=== PATIENT | male | born 1950 | race Caucasian/White ===

== ENCOUNTER → 2017-01-23 | Outpatient (CLI) | payer MEDICARE ==
--- NOTE | 2017-01-23 11:34 | US ---
EXAMINATION TYPE: US kidneys/renal and bladder DATE OF EXAM: 01/23/2017 11:11 AM COMPARISON: US 10/19/2016, 05/10/2016 CLINICAL HISTORY: R Renal Cyst D41.01. F/U previous renal EXAM MEASUREMENTS: Right Kidney: 10.8 x 5.3 x 5.1 cm Left Kidney: 11.6 x 6.2 x 6.1 cm FINDINGS: Right Kidney: Cyst upper pole as seen on previous= 1.7 x 1.1 x 1.5 cm Left Kidney: wnl Bladder: wnl Bilateral Jets seen: Yes Incidental finding as seen on previous, enlarged spleen= 16.0 cm There is no evidence for hydronephrosis at this point in time. No nephrolithiasis is seen. No khoa s are identified. The urinary bladder is anechoic. Bilateral ureteral jets are seen. IMPRESSION: Simple appearing right upper pole renal cyst Incidental note made of mild splenomegaly
== END | disposition home or self-care (01) ==
LOC: RADUSWWP 10:47
PROVIDERS: ATTEND Urology
DX: N28.1 Cyst of kidney, acquired (principal)
CPT/HCPCS: 76770

== ENCOUNTER 2017-03-21 06:38 | Day surgery (SDC) | payer MEDICARE ==
[~2017-03-21 06:38] MED LIST: DEXAMETHASONE SOD PHOSPHATE 10 MG/ML 1 ML VIAL IV ONE; HYDROmorphone 1 MG/ML 1 ML SYRINGE IVP PRN; LACTATED RINGERS 1,000 ML IV SCH; LIDOCAINE 1% 20 ML VIAL (10MG/ML) FOR IV START INTRADERMA PRN; MIDAZOLAM 2 MG/2 ML VIAL IV PRN; ONDANSETRON 4 MG/2 ML VIAL IVP ONE; Pre Op ABX Message 1 EACH MISC MISCELLANE ONE; SCOPOLAMINE 1.5MG/72HR PATCH TRANSDERM ONE
[2017-03-21 07:22] LABS: Basophils % (A) 1 %; CH 31.1; CHCM 35.7; Eosinophils # (A) 0.1 k/uL (0-0.7); Eosinophils % (A) 3 %; HCT 45.8 % (39.0-53.0); HDW 3.18; HGB 16.1 gm/dL (13.0-17.5); Luc # (Auto) 0.11; Luc % (Auto) 2; Lymphocytes # (A) 1.5 k/uL (1.0-4.8); Lymphocytes % (A) 30 %; MCH 30.6 pg (25.0-35.0); MCV 87.4 fL (80.0-100.0); Mean Platelet Volume 7.4; Monocytes # (A) 0.3 k/uL (0-1.0); Monocytes % (A) 6 %; Neutrophils # (A) 2.9 k/uL (1.3-7.7); Neutrophils % (A) 58 %; RBC 5.24 m/uL (4.30-5.90); RDW 14.8 % (11.5-15.5); WBC 4.9 k/uL (3.8-10.6); WBC (Perox) 4.97
[2017-03-21 07:33] LABS: Potassium 3.8 mmol/L (3.5-5.1)
[2017-03-21] MEDS ORDERED: SUCCINYLCHOLINE CHLORIDE 100 MG/5 ML SYR IV ONE (07:37)
[2017-03-21] MEDS ORDERED: ePHEDrine 50 MG/ML 1 ML AMP ONE (07:37)
[2017-03-21] MEDS ORDERED: LIDOCAINE 1% INJ 10MG/ML (20 ML MDV) ONE (07:37)
[2017-03-21] MEDS ORDERED: fentaNYL (PF) 50 MCG/ML 2 ML AMP ONE (07:37)
[2017-03-21] MEDS ORDERED: MIDAZOLAM 2 MG/2 ML VIAL ONE (07:37)
[2017-03-21] MEDS ORDERED: KETAMINE 10 MG/ML 20 ML VIAL ONE (07:37)
[2017-03-21] MEDS ORDERED: GLYCOPYRROLATE 0.2 MG/ML 2 ML VIAL ONE (07:37)
[2017-03-21] MEDS ORDERED: PROPOFOL 10 MG/ML 20 ML VIAL IV ONE (07:37)
[2017-03-21] MEDS ORDERED: SODIUM CHLORIDE 0.9% IV ONE ×2 (07:45)
[2017-03-21] MEDS ORDERED: CLINDAMYCIN IV ONE ×2 (07:45)
[2017-03-21] MEDS ORDERED: CLINDAMYCIN 600 MG in SODIUM CHLORIDE 0.9% 1,000 ML IRRIGATION ONE (08:23)
[2017-03-21] MEDS ORDERED: LACTATED RINGERS 1,000 ML IV ONE (08:33)
[2017-03-21] MEDS ORDERED: ONDANSETRON 4 MG/2 ML VIAL IVP PRN (09:34)
[2017-03-21] MEDS ORDERED: HYDROmorphone 1 MG/ML 1 ML SYRINGE IVP PRN ×2 (09:34)
[2017-03-21] MEDS ORDERED: SENNOSIDES-DOCUSATE SODIUM 1 EACH TAB PO PRN (09:34)
[2017-03-21] MEDS ORDERED: TEMAZEPAM 15 MG CAP PO PRN (09:34)
[2017-03-21] MEDS ORDERED: HYDROcodone/APAP 10-325MG 1 EACH TAB PO PRN (09:38)
[2017-03-21] MEDS: HYDROcodone/APAP 10-325MG 1 EACH TAB PO PRN ×3 (11:23→23:27)
[2017-03-21] MEDS: LACTATED RINGERS 1,000 ML IV SCH ×2 (11:27→20:01)
[2017-03-21] MEDS ORDERED: FUROSEMIDE 20 MG TAB PO PRN (12:28)
--- NOTE | 2017-03-21 12:36 | P.CONS ---
History of Present Illness - History of Present Illness 67-year-old male post repair of quadriceps tendon left knee home medications reordered Review of Systems Musculoskeletal: left: knee pain Past Medical History Past Medical History: Hypertension, Osteoarthritis (OA), Sleep Apnea/CPAP/BIPAP Additional Past Medical History / Comment(s): CHRONIC BACK PAIN, C-PAP MACHINE. , CYST ON KIDNEY., VARICOSE VEINS., STATES REPEAT RUPTURE OF QUADRICEPS TENDON DURING BACK SURGERY., USING CANE. History of Any Multi-Drug Resistant Organisms: None Reported Past Surgical History: Back Surgery, Joint Replacement Additional Past Surgical History / Comment(s): RIGHT KNEE REPLACEMENT., BILATERAL FOOT SURGERIES., VEIN STRIPPING., RIGHT SHOULDER, LEFT KNEE . Past Anesthesia/Blood Transfusion Reactions: No Reported Reaction Past Psychological History: Depression Additional Psychological History / Comment(s): QUIT SMOKING IN THE . SMOKED FOR APPROX 15 YEARS. SMOKED LESS THAN 1/2 PPD. Smoking Status: Former smoker Past Alcohol Use History: None Reported Past Drug Use History: None Reported - Past Family History Father Family Medical History: Cancer Additional Family Medical History / Comment(s): PROSTATE CANCER Medications and Allergies Home Medications Medication Instructions Recorded Confirmed Type ALPRAZolam [ALPRAZolam] 1 mg PO HS PRN 10/02/15 03/21/17 History Atenolol [Atenolol] 100 mg PO QAM 10/02/15 03/21/17 History Escitalopram [Lexapro] 20 mg PO QAM 10/02/15 03/21/17 History Hydrocodone/Acetaminophen 1 tab PO Q4-6H PRN 10/02/15 03/21/17 History [Hydrocodon-Acetaminophn 10-325] Furosemide [Furosemide] 20 mg PO BID PRN 09/14/16 03/21/17 History Gabapentin [Gabapentin] 400 mg PO HS 09/14/16 03/21/17 History Allopurinol [Zyloprim] 200 mg PO DAILY 03/17/17 03/21/17 History Cholecalciferol [Vitamin D3] 1,000 unit PO DAILY 03/17/17 03/21/17 History Naproxen 500 mg PO DAILY PRN 03/17/17 03/21/17 History Vitamin B Complex 1 each PO DAILY 03/17/17 03/21/17 History Allergies Allergy/AdvReac Type Severity Reaction Status Date / Time cephalexin monohydrate Allergy GI BLEEDING Verified 03/21/17 11:16 [From Keflex] Penicillins Allergy Dyspnea Verified 03/21/17 11:16 Physical Exam Vitals: Vital Signs Temp Pulse Resp BP Pulse Ox 03/21/17 10:34 60 16 155/78 96 03/21/17 10:19 59 L 16 152/80 96 03/21/17 10:04 61 16 153/89 95 03/21/17 09:49 65 16 163/67 95 03/21/17 09:34 97.3 F L 69 12 174/86 92 L 03/21/17 06:52 98.0 F 53 L 18 174/86 94 L Intake and Output 03/20/17 03/21/17 03/21/17 22:59 06:59 14:59 Intake Total 1302 Output Total 310 Balance 992 Intake: IV 1302 Output: Urine 300 Estimated Blood Loss 10 - Constitutional General appearance: mild distress, obese - EENT Eyes: PERRLA Ears: bilateral: normal - Neck Neck: normal ROM - Respiratory Respiratory: bilateral: CTA - Cardiovascular Rhythm: regular - Gastrointestinal General gastrointestinal: soft - Integumentary Integumentary: normal - Neurologic Neurologic: CNII-XII intact - Musculoskeletal Left knee immobilizer - Psychiatric Psychiatric: appropriate affect, intact judgment & insight Results CBC & Chem 7: 03/21/17 07:10 03/21/17 07:10 Assessment and Plan Plan: Assessment Post repair of quadriceps tendon left knee History of hypertension Osteoarthritis with chronic back pain Sleep apnea uses CPAP Anxiety disorder Plan Reordered home medication we'll monitor for changes in condition
[2017-03-21 12:37] VITALS: BMI 34.0
[2017-03-21] MEDS: ATENOLOL 50 MG TAB PO SCH (13:55)
[2017-03-21] MEDS: ESCITALOPRAM 20 MG TAB PO SCH (13:55)
[2017-03-21] MEDS: ALLOPURINOL 100 MG TAB PO SCH (13:56)
[2017-03-21] MEDS: HYDROmorphone 1 MG/ML 1 ML SYRINGE IVP PRN (14:04)
[2017-03-21] MEDS: CLINDAMYCIN 900 MG in DEXTROSE 5% IN WATER 50 ML IVPB SCH ×4 (17:58→23:45)
[2017-03-21] MEDS: hydrOXYzine PAMOATE 25 MG CAP PO PRN (17:59)
[2017-03-21] MEDS: GABAPENTIN 400 MG CAP PO SCH (20:01)
[2017-03-21] MEDS: ALPRAZolam 0.5 MG TAB PO PRN (23:28)
[2017-03-22] MEDS: LACTATED RINGERS 1,000 ML IV SCH ×3 (04:15→20:27)
[2017-03-22] MEDS: HYDROcodone/APAP 10-325MG 1 EACH TAB PO PRN ×3 (06:54→19:39)
[2017-03-22] MEDS: hydrOXYzine PAMOATE 25 MG CAP PO PRN ×2 (06:55→19:39)
[2017-03-22] MEDS: ALLOPURINOL 100 MG TAB PO SCH (07:55)
[2017-03-22] MEDS: ATENOLOL 50 MG TAB PO SCH (07:55)
[2017-03-22] MEDS: ESCITALOPRAM 20 MG TAB PO SCH (07:56)
--- NOTE | 2017-03-22 08:37 | P.PN ---
Subjective Principal diagnosis: Status post left quadriceps tendon repair This is a 67 year-old male post left quadriceps tendon repair. This is post-op day 1. The patient was evaluated at the bedside today. The patient denies nausea, vomiting, abdominal pain, shortness of breath, and chest pain this morning. He states his pain is controlled at this time. The patient has not been up with physical therapy yet. Objective - Vital Signs Vital signs: Vital Signs Temp 98 F 03/22/17 07:00 Pulse 56 L 03/22/17 07:00 Resp 16 03/22/17 07:00 BP 153/70 03/22/17 07:00 Pulse Ox 93 L 03/22/17 07:00 Intake & Output 03/21/17 03/22/17 03/22/17 18:59 06:59 18:59 Intake Total 2302 450 180 Output Total 1610 1500 4100 Balance 692 -1050 -3920 Weight 127.006 kg Intake: IV 1302 450 Clindamycin 900 mg In 50 Dextrose 5% in Water 50 ml @ 100 mls/hr IVPB Q8HR TATO Rx#:[id number] Lactated Ringers 1,000 ml 400 @ 100 mls/hr IV .Q10H TATO Rx#:[id number] Oral 1000 180 Output: Urine 1600 1500 4100 Uretheral (Briceño) 1500 2800 Estimated Blood Loss 10 Other: Voiding Method Indwelling Catheter Indwelling Catheter Indwelling Catheter - Exam The patient does not appear in acute distress. Alert and orientated x3. Dressing is clean dry and intact. Calf is soft and nontender. Good foot and ankle motion without difficulty. Sensation and circulatory status is intact. - Labs CBC & Chem 7: 03/21/17 07:10 03/21/17 07:10 Assessment and Plan (1) Traumatic rupture of left quadriceps tendon Status: Acute (2) Status post tendon repair Status: Acute Plan: 1. Continue pain control 2. Non-weightbearing to the left leg 3. Start physical therapy and ambulation 4. Anticipate discharge home tomorrow
[2017-03-22] MEDS: HYDROmorphone 1 MG/ML 1 ML SYRINGE IVP PRN (10:00)
--- NOTE | 2017-03-22 10:54 | P.PN ---
Subjective Patient sitting in chair by bedside. States pain uncontrolled. His started physical therapy. Anticipate discharge home tomorrow Objective - Vital Signs Vital signs: Vital Signs Temp 98 F 03/22/17 07:00 Pulse 56 L 03/22/17 07:00 Resp 16 03/22/17 07:00 BP 153/70 03/22/17 07:00 Pulse Ox 93 L 03/22/17 07:00 Intake & Output 03/21/17 03/22/17 03/22/17 18:59 06:59 18:59 Intake Total 2302 450 180 Output Total 1610 1500 4100 Balance 692 -1050 -3920 Weight 127.006 kg Intake: IV 1302 450 Clindamycin 900 mg In 50 Dextrose 5% in Water 50 ml @ 100 mls/hr IVPB Q8HR TATO Rx#:[id number] Lactated Ringers 1,000 ml 400 @ 100 mls/hr IV .Q10H TTAO Rx#:[id number] Oral 1000 180 Output: Urine 1600 1500 4100 Uretheral (Briceño) 1500 2800 Estimated Blood Loss 10 Other: Voiding Method Indwelling Catheter Indwelling Catheter Indwelling Catheter - Constitutional General appearance: Present: mild distress, obese - EENT Eyes: Present: PERRLA Ears: bilateral: normal - Neck Neck: Present: normal ROM - Respiratory Respiratory: bilateral: CTA - Cardiovascular Rhythm: regular - Gastrointestinal General gastrointestinal: Present: soft - Integumentary Integumentary: Present: normal - Neurologic Neurologic: Present: CNII-XII intact - Psychiatric Psychiatric: Present: A&O x's 3, appropriate affect, intact judgment & insight - Labs CBC & Chem 7: 03/21/17 07:10 03/21/17 07:10 Assessment and Plan Plan: Assessment Repair of quadriceps tendon left knee Hypertension Osteoarthritis chronic back pain Sleep apnea uses CPAP Anxiety disorder Plan Patient stable medically for discharge
[2017-03-22] MEDS ORDERED: B COMPLEX-VIT C-VIT E-ZINC 1 EACH TAB PO SCH (12:00)
[2017-03-22] MEDS ORDERED: CHOLECALCIFEROL 1,000 UNIT TAB PO SCH (12:00)
--- NOTE | 2017-03-22 19:44 | OP ---
DATE OF SERVICE: 03/21/2017 SURGEON: LEONEL MORGAN DO PROCEDURES TECH: Chiquita STORM PREOPERATIVE DIAGNOSIS: Ruptured quadriceps tendon, left knee. POSTOPERATIVE DIAGNOSIS: Ruptured quadriceps tendon, left knee OPERATION: Repair of secondary quadriceps rupture of left knee with a quadriceps slide procedure. ANESTHESIA: ESTIMATED BLOOD LOSS: SPECIMENS REMOVED: COMPLICATIONS: OPERATIVE FINDINGS: DESCRIPTION OF PROCEDURE: Patient was taken to the operative suite and placed in supine position. General inhalation anesthesia was performed by the department of anesthesiology. A Betadine prep was carried out over the left knee from mid thigh to mid calf. Sterile drapes were applied in the usual manner. Pneumatic tourniquet was applied 350 mmHg. . A longitudinal incision was developed over previous incision. Blunt dissection through subcutaneous tissue was performed. Multiple retaining sutures were removed at this time. The superior patella was prepared. An incision was developed over the medial and lateral boarder of the central tendon rupture. Drill holes were made into the superior pole of the patella. Towel clamps were used in approximating the tendon. #5 Ethibond suture was utilized in a securing tendon. The tendon was repaired with #2 Ethibond suture un running fashion. Area was irrigated. Antibiotic solution was placed deep in the joint at this time. Further repair was carried out the medial and lateral portions of the quadriceps. Deep fascia was approximated with #3 Ethibond suture and Vicryl suture in running fashion. Subcutaneous tissue was approximated with 2-0 Vicryl suture. Skin was approximated with skin clips. Betadine, Adaptic and sterile pressure dressings were applied. The patient was placed in an immobilizer. Pneumatic tourniquet was deflated. Patient transferred to the recovery room in satisfactory postoperative condition. GROSS PATHOLOGY: There was evidence of a chronic tear of the quadriceps tendon following previous repair of tendon. [facility]
[2017-03-22] MEDS: GABAPENTIN 400 MG CAP PO SCH (20:24)
[2017-03-22] MEDS: ALPRAZolam 0.5 MG TAB PO PRN (23:49)
[2017-03-23 02:12] VITALS: RESP 16
[2017-03-23] MEDS: HYDROcodone/APAP 10-325MG 1 EACH TAB PO PRN ×2 (06:55→11:30)
[2017-03-23 07:38] VITALS: BP 142/81; PULSE 58; TEMP 99.8
[2017-03-23] MEDS: ALLOPURINOL 100 MG TAB PO SCH (07:57)
[2017-03-23] MEDS: ATENOLOL 50 MG TAB PO SCH (07:58)
[2017-03-23] MEDS: LACTATED RINGERS 1,000 ML IV SCH (07:58)
[2017-03-23] MEDS: ESCITALOPRAM 20 MG TAB PO SCH (07:58)
--- NOTE | 2017-03-23 08:24 | P.DS ---
Providers Expected date of discharge: 03/23/17 Attending physician: Matt Yoder Consults: 03/21/17 09:34 Consult Physician Routine Consulting Provider: Fernando Yuen Consult Reason/Comments: medical management Do you want consulting provider notified?: Yes Primary care physician: Fernando Yuen - Discharge Diagnosis(es) (1) Traumatic rupture of left quadriceps tendon Current Visit: Yes Status: Acute (2) Status post tendon repair Current Visit: No Status: Acute Hospital Course: This is a pleasant 67-year-old male last seen in our office with complaints of left knee pain. Patient has known history of a previous quadriceps tendon rupture and found to have a re-rupture of the quad tendon. After discussion and consideration, the patient elected to proceed with a secondary left quadriceps tendon repair. Patient was seen preoperatively, and medically cleared for surgery by his primary care physician. Patient was admitted to [facility] underwent left secondary quadriceps tendon repair on 03/21/[address] Yoder. The procedure was performed without complications or sequelae. The patient is seen and evaluated at bedside today. Pain is well-controlled. Patient has no new complaints today and denies any fevers, chills, nausea, vomiting, or shortness of breath. Vital signs are stable. Dressing is clean dry and intact. Incision looks fine with no erythema or active drainage. Calf is soft and nontender. Patient has full foot and ankle motion without difficulty. Patient's left lower extremity is neurovascularly intact. The patient is orthopedically stable for discharge home today. Pertinent Studies: Laboratory Tests 03/21/17 07:10 WBC 4.9 RBC 5.24 Hgb 16.1 Hct 45.8 Patient Condition at Discharge: Stable Plan - Discharge Summary New Discharge Prescriptions: Aspirin 325 mg PO BID #60 tab HYDROcodone/APAP 10-325MG [[place] 10-325] 1 - 2 tab PO Q4-6H PRN #90 tab PRN Reason: Pain Sennosides-Docusate Sodium [Senokot-S] 2 tab PO DAILY #30 tablet Discharge Medication List ALPRAZolam [ALPRAZolam] 1 mg PO HS PRN 10/02/15 [History] Atenolol [Atenolol] 100 mg PO QAM 10/02/15 [History] Escitalopram [Lexapro] 20 mg PO QAM 10/02/15 [History] Hydrocodone/Acetaminophen [Hydrocodon-Acetaminophn 10-325] 1 tab PO Q4-6H PRN [History] Furosemide [Furosemide] 20 mg PO BID PRN 09/14/16 [History] Gabapentin [Gabapentin] 400 mg PO HS 09/14/16 [History] Allopurinol [Zyloprim] 200 mg PO DAILY 03/17/17 [History] Cholecalciferol [Vitamin D3] 1,000 unit PO DAILY 03/17/17 [History] Naproxen 500 mg PO DAILY PRN 03/17/17 [History] Vitamin B Complex 1 each PO DAILY 03/17/17 [History] Aspirin 325 mg PO BID #60 tab 03/22/17 [Rx] HYDROcodone/APAP 10-325MG [[place] 10-325] 1 - 2 tab PO Q4-6H PRN #90 tab [Rx] Sennosides-Docusate Sodium [Senokot-S] 2 tab PO DAILY #30 tablet 03/22/17 [Rx] Follow up Appointment(s)/Referral(s): Matt Yoder DO [Doctor of Osteopathic Medicine] - 1 Week () Activity/Diet/Wound Care/Special Instructions: Change dressing daily and as needed. Non-weightbearing to the left leg Keep knee immobilizer in place with knee hyperextended. Hernandez to be removed at follow up visit Follow up with Dr. Yoder in 7 days. Call [facility] with any questions or concerns, . Discharge Disposition: HOME SELF-CARE
== END 2017-03-23 12:30 | disposition home or self-care (01) ==
LOC: OR 06:38 → 3SUR 09:34 → OR 03-23 12:30
PROVIDERS: ATTEND Orthopaedic Surgery
DX: S76.112A Strain of left quadriceps muscle, fascia and tendon, initial encounter (principal); X58.XXXA Exposure to other specified factors, initial encounter; M21.372 Foot drop, left foot; I10 Essential (primary) hypertension; G47.30 Sleep apnea, unspecified; F32.9 Major depressive disorder, single episode, unspecified; M19.90 Unspecified osteoarthritis, unspecified site; H91.90 Unspecified hearing loss, unspecified ear; M54.9 Dorsalgia, unspecified; G89.29 Other chronic pain; F41.9 Anxiety disorder, unspecified; N28.9 Disorder of kidney and ureter, unspecified; Z96.651 Presence of right artificial knee joint; Z98.1 Arthrodesis status; Z79.1 Long term (current) use of non-steroidal anti-inflammatories (NSAID); Z79.891 Long term (current) use of opiate analgesic; Z79.899 Other long term (current) drug therapy; Z88.1 Allergy status to other antibiotic agents; Z88.0 Allergy status to penicillin; Z87.891 Personal history of nicotine dependence
CPT/HCPCS: 97116; 97161; 80051; 85025; 27665; J2250; J1100; J2405; J2001; J3010; J1170 ×2; J0330; J2704

== ENCOUNTER → 2017-07-21 | Outpatient (CLI) | payer MEDICARE ==
--- NOTE | 2017-07-21 10:47 | US ---
EXAMINATION TYPE: US kidneys/renal and bladder DATE OF EXAM: 07/21/2017 COMPARISON: 01/23/2017 CLINICAL HISTORY: N28.1 Renal cyst. Follow up renal cyst EXAM MEASUREMENTS: Right Kidney: 9.2 x 5.4 x 5.3 cm Left Kidney: 12.1 x 6.3 x 4.8 cm Right Kidney: cystic area upper pole = 1.6 x 1.3 x 1.6cm , with previous measurement of 1.7 x 1.1 x 1 .5 cm on the examination of 01/23/2017. Left Kidney: no evidence of hydronephrosis or mass Bladder: not fully distended Bilateral Jets seen: yes Incidental finding: splenomegaly, spleen = 16.4cm There is no evidence for hydronephrosis at this point in time. No nephrolithiasis is seen. The urin laura bladder is anechoic. Bilateral ureteral jets are seen. IMPRESSION: 1. Similar size and morphology of the right upper pole renal cyst. 2. Splenomegaly.
== END | disposition home or self-care (01) ==
LOC: RADUSWWP 09:58
PROVIDERS: ATTEND Urology
DX: N28.1 Cyst of kidney, acquired (principal); R16.1 Splenomegaly, not elsewhere classified
CPT/HCPCS: 76770

== ENCOUNTER → 2018-02-09 | Outpatient (CLI) | payer MEDICARE ==
--- NOTE | 2018-02-09 12:15 | US ---
EXAMINATION TYPE: US duplex aorta DATE OF EXAM: 02/09/2018 COMPARISON: NONE CLINICAL HISTORY: Z13.9 Screening. Screening, pt has no complaints at this time EXAM MEASUREMENTS: Abdominal Aorta: Proximal: 2.5 x 2.4 cm Mid: 1.9 x 2.2 cm Distal: 1.6 x 1.9 cm Bifurcation: THEODORA: 1.0 x 1.1 cm FELICIA: 1.0 x 1.0 cm No evidence of AAA, proximal portion of aorta upper limits of normal IMPRESSION: No evidence for abdominal aortic aneurysm.
== END | disposition home or self-care (01) ==
LOC: RADUSWWP 11:06
PROVIDERS: ATTEND Family Medicine
DX: Z13.9 Encounter for screening, unspecified (principal)
CPT/HCPCS: 93979

== ENCOUNTER → 2019-01-24 | Outpatient (CLI) | payer MEDICARE ==
--- NOTE | 2019-01-24 15:35 | XR ---
EXAMINATION TYPE: XR lumbar spine 2 or 3V DATE OF EXAM: 01/24/2019 CLINICAL HISTORY: Low back pain. History of fusion surgery 3 years ago. TECHNIQUE: Frontal and lateral images of the lumbar spine are obtained. COMPARISON: MRI lumbar spine 2016 FINDINGS: There are 6 lumbar type vertebral bodies identified. The lumbar spine shows interval plac ement of right posterior interpedicular rods and screws transfixing L4 through L6 levels with artific ial disc material at these levels. There is persistent grade 1 anterolisthesis of L5 on L6 without in terval progression. Moderate to severe multilevel anterior and lateral spurring is seen. Posterior la minectomy defect with spinous process resection is identified in the lower lumbar spine. Overlying so ft tissue is unremarkable. IMPRESSION: As above.
--- NOTE | 2019-01-24 15:47 | XR ---
EXAMINATION TYPE: XR Hip Complete LT DATE OF EXAM: 01/24/2019 CLINICAL HISTORY: Left hip pain. TECHNIQUE: AP and frogleg views of the left hip are obtained. COMPARISON: None. FINDINGS: There is no acute fracture/dislocation evident in the left hip. Moderate axial joint space loss with mild acetabular spurring is present. There is suggestion of 1.0 cm ossific loose body near superolateral acetabulum may be loose body within joint space. Ossification at level of greater troc hanter is noted. Correlate for trochanteric bursitis and/or old injury. IMPRESSION: As above.
== END | disposition home or self-care (01) ==
LOC: RADXRMAIN 14:48
PROVIDERS: ATTEND Physician Assistant
DX: M43.16 Spondylolisthesis, lumbar region (principal); M76.892 Other specified enthesopathies of left lower limb, excluding foot; Z98.1 Arthrodesis status
CPT/HCPCS: 72100; 73502

== ENCOUNTER → 2019-02-21 | Outpatient (CLI) | payer MEDICARE ==
--- NOTE | 2019-02-21 14:39 | XR ---
EXAMINATION TYPE: XR hand complete LT DATE OF EXAM: 02/21/2019 CLINICAL HISTORY: pain TECHNIQUE: Frontal, lateral and oblique images of the left hand are obtained. COMPARISON: None. FINDINGS: There is no acute fracture/dislocation evident. Joint space narrowing first carpometacarpa l joint space and intercarpal joint spaces with soft tissue calcifications noted. IMPRESSION: There is no acute fracture or dislocation. ICD 10 NO FRACTURE, INITIAL EVALUATION
== END | disposition home or self-care (01) ==
LOC: RADXRMAIN 14:01
PROVIDERS: ATTEND Physician Assistant
DX: M79.642 Pain in left hand (principal)

== ENCOUNTER 2019-05-16 16:05 | Emergency (ER) | payer MEDICARE ==
[2019-05-16 16:18] VITALS: TEMP 98.4
[2019-05-16] MEDS ORDERED: PANTOPRAZOLE 40 MG/10 ML VIAL IVP STA (16:23)
[2019-05-16] MEDS ORDERED: ONDANSETRON 4 MG/2 ML VIAL IVP STA (16:23)
[2019-05-16] MEDS ORDERED: SODIUM CHLORIDE 0.9% 1,000 ML IV STA (16:23)
[2019-05-16 17:01] LABS: Basophils % (A) 1 %; Eosinophils # (A) 0.1 k/uL (0-0.7); Eosinophils % (A) 2 %; HCT 48.2 % (39.0-53.0); HGB 16.1 gm/dL (13.0-17.5); Lymphocytes # (A) 1.1 k/uL (1.0-4.8); Lymphocytes % (A) 22 %; MCH 30.1 pg (25.0-35.0); MCHC 33.5 g/dL (31.0-37.0); MCV 89.8 fL (80.0-100.0); Mean Platelet Volume 8.1; Monocytes # (A) 0.2 k/uL (0-1.0); Monocytes % (A) 5 %; Neutrophils # (A) 3.4 k/uL (1.3-7.7); Neutrophils % (A) 68 %; Platelet Count 135 k/uL (150-450); RBC 5.36 m/uL (4.30-5.90); RDW 15.6 % (11.5-15.5)
[2019-05-16 17:11] LABS: Partial Thromboplastin Time 28.5 sec (22.0-30.0); Prothrombin Time 10.6 sec (9.0-12.0)
[2019-05-16 17:15] LABS: Albumin 4.4 g/dL (3.5-5.0); Calcium 9.2 mg/dL (8.4-10.2); Potassium 4.8 mmol/L (3.5-5.1); Total Bilirubin 0.7 mg/dL (0.2-1.3)
--- NOTE | 2019-05-16 18:09 | ED ---
GI Bleed HPI - General Chief complaint: GI Bleed Stated complaint: Bloody stool Time Seen by Provider: 05/16/19 16:23 Source: patient, RN notes reviewed, old records reviewed Mode of arrival: ambulatory Limitations: no limitations - History of Present Illness Initial comments: This is a 69-year-old male the ER for evaluation. Patient is presenting for evaluation of what in the stool. Right red blood per rectum. No history of same no blood thinners. Patient has no abdominal pain no nausea vomiting. No recent travel history no sick contacts no found of similar complaint. No prior history of GI bleed. Patient does have history of colonoscopy with no significant findings MD complaint: blood on toilet paper, blood streaked stool -: days(s) Radiation: none Severity scale (1-10): 3 Quality: painless Consistency: constant, intermittent Worsens with: none Associated Symptoms: denies other symptoms Treatments Prior to Arrival: none - Related Data Home Medications Medication Instructions Recorded Confirmed Atenolol 100 mg PO DAILY 10/02/15 05/16/19 Escitalopram [Lexapro] 20 mg PO DAILY 10/02/15 05/16/19 Hydrocodone/Acetaminophen 1 tab PO Q4H PRN 10/02/15 05/16/19 [Hydrocodon-Acetaminophn 10-325] Allopurinol [Zyloprim] 200 mg PO DAILY 03/17/17 05/16/19 ALPRAZolam [Xanax] 0.5 mg PO HS 05/16/19 05/16/19 HYDROcodone/APAP 10-325MG [[place] 1 tab PO Q4H PRN 05/16/19 05/16/19 10-325] Pregabalin [Lyrica] 75 mg PO BID 05/16/19 05/16/19 Allergies Allergy/AdvReac Type Severity Reaction Status Date / Time cephalexin monohydrate Allergy GI BLEEDING Verified 05/16/19 17:16 [From Keflex] Penicillins Allergy Dyspnea Verified 05/16/19 17:16 Review of Systems ROS Statement: Those systems with pertinent positive or pertinent negative responses have been documented in the HPI. ROS Other: All systems not noted in ROS Statement are negative. Past Medical History Past Medical History: Hypertension, Osteoarthritis (OA), Sleep Apnea/CPAP/BIPAP Additional Past Medical History / Comment(s): CHRONIC BACK PAIN, C-PAP MACHINE., CYST ON KIDNEY., VARICOSE VEINS., STATES REPEAT RUPTURE OF QUADRICEPS TENDON DURING BACK SURGERY., USING CANE. History of Any Multi-Drug Resistant Organisms: None Reported Past Surgical History: Back Surgery, Joint Replacement Additional Past Surgical History / Comment(s): RIGHT KNEE REPLACEMENT., BILATERAL FOOT SURGERIES., VEIN STRIPPING., RIGHT SHOULDER, LEFT KNEE . Past Anesthesia/Blood Transfusion Reactions: No Reported Reaction Past Psychological History: Depression Smoking Status: Former smoker Past Alcohol Use History: None Reported Past Drug Use History: None Reported - Past Family History Father Family Medical History: Cancer Additional Family Medical History / Comment(s): PROSTATE CANCER General Exam Limitations: no limitations General appearance: alert, in no apparent distress Head exam: Present: atraumatic, normocephalic, normal inspection Eye exam: Present: normal appearance, PERRL, EOMI. Absent: scleral icterus, conjunctival injection, periorbital swelling ENT exam: Present: normal exam, mucous membranes moist Neck exam: Present: normal inspection. Absent: tenderness, meningismus, lym phadenopathy Respiratory exam: Present: normal lung sounds bilaterally. Absent: respiratory distress, wheezes, rales, rhonchi, stridor Cardiovascular Exam: Present: regular rate, normal rhythm, normal heart sounds. Absent: systolic murmur, diastolic murmur, rubs, gallop, clicks GI/Abdominal exam: Present: soft, normal bowel sounds. Absent: distended, tenderness, guarding, rebound, rigid Extremities exam: Present: normal inspection, full ROM, normal capillary refill. Absent: tenderness, pedal edema, joint swelling, calf tenderness Back exam: Present: normal inspection Neurological exam: Present: alert, oriented X3, CN II-XII intact Psychiatric exam: Present: normal affect, normal mood Skin exam: Present: warm, dry, intact, normal color. Absent: rash Course Vital Signs 05/16/19 16:15 Temperature 98.4 F Pulse Rate 50 L Respiratory 16 Rate Blood Pressure 142/92 O2 Sat by Pulse 98 Oximetry - Reevaluation(s) Reevaluation #1: 05/16/19 18:08 Medical record is reviewed Reevaluation #2: 05/16/19 18:08 A she has no active bleeding here in the ER Medical Decision Making - Medical Decision Making 69 male the ER for evaluation positive GI bleed bright red blood per rectum, no findings on exam, hemoglobin is normal vital signs are normal and stable throughout ER stay. Patient can be discharged home - Lab Data Result diagrams: 05/16/19 16:49 05/16/19 16:49 Lab Results 05/16/19 05/16/19 05/16/19 Range/Units 16:49 16:49 16:49 WBC 5.0 (3.8-10.6) k/uL RBC 5.36 (4.30-5.90) m/uL Hgb 16.1 (13.0-17.5) gm/dL Hct 48.2 (39.0-53.0) % MCV 89.8 (80.0-100.0) fL MCH 30.1 (25.0-35.0) pg MCHC 33.5 (31.0-37.0) g/dL RDW 15.6 H (11.5-15.5) % Plt Count 135 L (150-450) k/uL Neutrophils % 68 % Lymphocytes % 22 % Monocytes % 5 % Eosinophils % 2 % Basophils % 1 % Neutrophils # 3.4 (1.3-7.7) k/uL Lymphocytes # 1.1 (1.0-4.8) k/uL Monocytes # 0.2 (0-1.0) k/uL Eosinophils # 0.1 (0-0.7) k/uL Basophils # 0.0 (0-0.2) k/uL PT 10.6 (9.0-12.0) sec INR 1.0 (<1.2) APTT 28.5 (22.0-30.0) sec Sodium 140 (137-145) mmol/L Potassium 4.8 (3.5-5.1) mmol/L Chloride 106 (98-107) mmol/L Carbon Dioxide 26 (22-30) mmol/L Anion Gap 8 mmol/L BUN 27 H (9-20) mg/dL Creatinine 1.34 H (0.66-1.25) mg/dL Est GFR (CKD-EPI)AfAm 63 (>60 ml/min/1.73 sqM) Est GFR (CKD-EPI)NonAf 55 (>60 ml/min/1.73 sqM) Glucose 86 (74-99) mg/dL Calcium 9.2 (8.4-10.2) mg/dL Magnesium 2.0 (1.6-2.3) mg/dL Total Bilirubin 0.7 (0.2-1.3) mg/dL AST 39 (17-59) U/L ALT 34 (21-72) U/L Alkaline Phosphatase 50 (38-126) U/L Troponin I (0.000-0.034) ng/mL Total Protein 7.0 (6.3-8.2) g/dL Albumin 4.4 (3.5-5.0) g/dL Lipase 96 (23-300) U/L Blood Type Blood Type Confirm Blood Type Recheck Antibody Screen Spec Expiration Date 05/16/19 05/16/19 05/16/19 Range/Units 16:49 16:49 16:52 WBC (3.8-10.6) k/uL RBC (4.30-5.90) m/uL Hgb (13.0-17.5) gm/dL Hct (39.0-53.0) % MCV (80.0-100.0) fL MCH (25.0-35.0) pg MCHC (31.0-37.0) g/dL RDW (11.5-15.5) % Plt Count (150-450) k/uL Neutrophils % % Lymphocytes % % Monocytes % % Eosinophils % % Basophils % % Neutrophils # (1.3-7.7) k/uL Lymphocytes # (1.0-4.8) k/uL Monocytes # (0-1.0) k/uL Eosinophils # (0-0.7) k/uL Basophils # (0-0.2) k/uL PT (9.0-12.0) sec INR (<1.2) APTT (22.0-30.0) sec Sodium (137-145) mmol/L Potassium (3.5-5.1) mmol/L Chloride (98-107) mmol/L Carbon Dioxide (22-30) mmol/L Anion Gap mmol/L BUN (9-20) mg/dL Creatinine (0.66-1.25) mg/dL Est GFR (CKD-EPI)AfAm (>60 ml/min/1.73 sqM) Est GFR (CKD-EPI)NonAf (>60 ml/min/1.73 sqM) Glucose (74-99) mg/dL Calcium (8.4-10.2) mg/dL Magnesium (1.6-2.3) mg/dL Total Bilirubin (0.2-1.3) mg/dL AST (17-59) U/L ALT (21-72) U/L Alkaline Phosphatase (38-126) U/L Troponin I <0.012 (0.000-0.034) ng/mL Total Protein (6.3-8.2) g/dL Albumin (3.5-5.0) g/dL Lipase (23-300) U/L Blood Type O Negative Blood Type Confirm O Negative Blood Type Recheck CABO Indicated Antibody Screen NEGATIVE Spec Expiration Date 05/19/2019 - 2343 Disposition Clinical Impression: Gastrointestinal hemorrhage Disposition: HOME SELF-CARE Condition: Good Instructions (If sedation given, give patient instructions): Gastrointestinal Bleeding (ED) Is patient prescribed a controlled substance at d/c from ED?: No Referrals: Fernando Yuen MD [Primary Care Provider] - 1-2 days
[2019-05-16 18:29] VITALS: BP 137/77; PULSE 47; RESP 18
== END 2019-05-16 18:29 | disposition home or self-care (01) ==
LOC: EC 16:05
DX: K92.2 Gastrointestinal hemorrhage, unspecified (principal); I10 Essential (primary) hypertension; F32.9 Major depressive disorder, single episode, unspecified; M19.90 Unspecified osteoarthritis, unspecified site; G47.30 Sleep apnea, unspecified; Z79.899 Other long term (current) drug therapy; Z88.0 Allergy status to penicillin; Z88.1 Allergy status to other antibiotic agents; Z87.891 Personal history of nicotine dependence; Z96.651 Presence of right artificial knee joint
CPT/HCPCS: 99285; 96374; 96375; 36415; 86900; 86901; 80053; 83690; 83735; 84484; 85025; 85610; 85730; 86850; 96361; J2405; C9113

== ENCOUNTER 2019-07-08 13:06 | Emergency (ER) | payer MEDICARE ==
[2019-07-08 15:27] LABS: Glucose,Whole Blood 111 mg/dL (75-99)
[2019-07-08 15:43] LABS: Albumin 4.2 g/dL (3.5-5.0); Calcium 9.2 mg/dL (8.4-10.2); Potassium 4.4 mmol/L (3.5-5.1); Total Bilirubin 0.5 mg/dL (0.2-1.3); Total Protein 6.8 g/dL (6.3-8.2)
--- NOTE | 2019-07-08 16:02 | ED ---
Neuro HPI - General Chief Complaint: Neuro Symptoms/Deficit Stated Complaint: lt sided facial droop, lt hand numbness Time Seen by Provider: 07/08/19 14:15 Source: patient, family Mode of arrival: wheelchair Limitations: no limitations - History of Present Illness Is the patient presenting with stroke symptoms?: Yes Last Known Well Date: 07/01/19 Initial Comments: Patient is a 69-year-old male presenting to the emergency Department with complaints of left-sided facial droop x 1 week. Patient states he noticed he was drooling a little bit this past week. Friends told him that the left side of his face looks a little bit different than his right side of his face. Patient states he also noticed that he was having difficulty doing his buttons with his left hand. Patient denies headache, changes in vision, shortness of breath, chest pain, fever, chills. Patient denies ever having these symptoms before. Patient's is here with him and states she thought he's been having moments of confusion. Patient denies this. Patient denies trouble walking. No other complaints at this time. Patient has past medical history hypertension, chronic back pain. Upon arrival, vital signs are stable, afebrile. Patient denies being on blood thinners. - Related Data Home Medications: Home Medications Medication Instructions Recorded Confirmed Atenolol 100 mg PO DAILY 10/02/15 07/08/19 Escitalopram [Lexapro] 20 mg PO DAILY 10/02/15 07/08/19 Allopurinol [Zyloprim] 200 mg PO DAILY 03/17/17 07/08/19 ALPRAZolam [Xanax] 0.5 mg PO HS 05/16/19 07/08/19 HYDROcodone/APAP 10-325MG [[place] 1 tab PO Q4H PRN 05/16/19 07/08/19 10-325] Pregabalin [Lyrica] 75 mg PO BID 05/16/19 07/08/19 Pantoprazole [Protonix] 40 mg PO DAILY 07/08/19 07/08/19 Allergies/Adverse Reactions: Allergies Allergy/AdvReac Type Severity Reaction Status Date / Time cephalexin monohydrate AdvReac GI BLEEDING Verified 07/08/19 13:31 [From Keflex] Penicillins AdvReac Dyspnea Verified 07/08/19 13:31 Review of Systems ROS Statement: Those systems with pertinent positive or pertinent negative responses have been documented in the HPI. ROS Other: All systems not noted in ROS Statement are negative. General Exam - General Exam Comments Initial Comments: GENERAL: Well-appearing, well-nourished and in no acute distress. HEAD: Atraumatic, normocephalic. EYES: Pupils equal round and reactive to light, extraocular movements intact, sclera anicteric, conjunctiva are normal. ENT: TMs normal, nares patent, oropharynx clear without exudates. Moist mucous membranes. NECK: Normal range of motion, supple without lymphadenopathy or JVD. LUNGS: Breath sounds clear to auscultation bilaterally and equal. No wheezes rales or rhonchi. HEART: Regular rate and rhythm without murmurs, rubs or gallops. ABDOMEN: Soft, nontender, normoactive bowel sounds. No guarding, no rebound. No masses appreciated. : Deferred EXTREMITIES: Normal range of motion, no pitting or edema. No clubbing or cyanosis. PSYCH: Normal mood, normal affect. SKIN: Warm, Dry, normal turgor, no rashes or lesions noted. Limitations: no limitations Neurological exam: Present: alert, oriented X3, normal gait Expanded Patient oriented to: Present: person, place, time Speech: Present: fluid speech Cranial nerves: EOM's Intact: Normal, Gag Reflex: Normal, Tongue Deviation: Normal, Nystagmus: Normal, Facial Sensation: Normal, Facial Palsy with Forehead Movement: Abnormal Left Cerebellar function: Finger to Nose: Normal Upper motor neuron: Pronator Drift: Normal Motor strength exam: RUE: 5, LUE: 5, RLE: 5, LLE: 5 Eye Response: (4) open spontaneously Motor Response: (6) obeys commands Verbal Response: (5) oriented Marlena Total: 15 Stroke MDM - Lab Data Result diagrams: 07/08/19 15:20 07/08/19 15:20 Lab Results 07/08/19 07/08/19 07/08/19 Range/Units 15:20 15:20 15:20 WBC 5.8 (3.8-10.6) k/uL RBC 4.86 (4.30-5.90) m/uL Hgb 15.6 (13.0-17.5) gm/dL Hct 45.6 (39.0-53.0) % MCV 93.8 (80.0-100.0) fL MCH 32.0 (25.0-35.0) pg MCHC 34.1 (31.0-37.0) g/dL RDW 15.5 (11.5-15.5) % Plt Count 145 L (150-450) k/uL Neutrophils % 74 % Lymphocytes % 19 % Monocytes % 5 % Eosinophils % 1 % Basophils % 1 % Neutrophils # 4.3 (1.3-7.7) k/uL Lymphocytes # 1.1 (1.0-4.8) k/uL Monocytes # 0.3 (0-1.0) k/uL Eosinophils # 0.1 (0-0.7) k/uL Basophils # 0.0 (0-0.2) k/uL PT 11.0 (9.0-12.0) sec INR 1.0 (<1.2) APTT 31.0 H (22.0-30.0) sec Sodium 140 (137-145) mmol/L Potassium 4.4 (3.5-5.1) mmol/L Chloride 107 (98-107) mmol/L Carbon Dioxide 24 (22-30) mmol/L Anion Gap 9 mmol/L BUN 29 H (9-20) mg/dL Creatinine 1.39 H (0.66-1.25) mg/dL Est GFR (CKD-EPI)AfAm 60 (>60 ml/min/1.73 sqM) Est GFR (CKD-EPI)NonAf 52 (>60 ml/min/1.73 sqM) Glucose 104 H (74-99) mg/dL POC Glucose (mg/dL) (75-99) mg/dL POC Glu C D Reactor Operator ID Calcium 9.2 (8.4-10.2) mg/dL Total Bilirubin 0.5 (0.2-1.3) mg/dL AST 32 (17-59) U/L ALT 26 (21-72) U/L Alkaline Phosphatase 53 (38-126) U/L Total Protein 6.8 (6.3-8.2) g/dL Albumin 4.2 (3.5-5.0) g/dL 07/08/19 Range/Units 15:24 WBC (3.8-10.6) k/uL RBC (4.30-5.90) m/uL Hgb (13.0-17.5) gm/dL Hct (39.0-53.0) % MCV (80.0-100.0) fL MCH (25.0-35.0) pg MCHC (31.0-37.0) g/dL RDW (11.5-15.5) % Plt Count (150-450) k/uL Neutrophils % % Lymphocytes % % Monocytes % % Eosinophils % % Basophils % % Neutrophils # (1.3-7.7) k/uL Lymphocytes # (1.0-4.8) k/uL Monocytes # (0-1.0) k/uL Eosinophils # (0-0.7) k/uL Basophils # (0-0.2) k/uL PT (9.0-12.0) sec INR (<1.2) APTT (22.0-30.0) sec Sodium (137-145) mmol/L Potassium (3.5-5.1) mmol/L Chloride (98-107) mmol/L Carbon Dioxide (22-30) mmol/L Anion Gap mmol/L BUN (9-20) mg/dL Creatinine (0.66-1.25) mg/dL Est GFR (CKD-EPI)AfAm (>60 ml/min/1.73 sqM) Est GFR (CKD-EPI)NonAf (>60 ml/min/1.73 sqM) Glucose (74-99) mg/dL POC Glucose (mg/dL) 111 H (75-99) mg/dL POC Glu C D Reactor Operator ID Sher Tan Calcium (8.4-10.2) mg/dL Total Bilirubin (0.2-1.3) mg/dL AST (17-59) U/L ALT (21-72) U/L Alkaline Phosphatase (38-126) U/L Total Protein (6.3-8.2) g/dL Albumin (3.5-5.0) g/dL - NIH Stroke Scale 1a. Level of Consciousness: (0) alert 1b. LOC Questions: (0) answers correctly 1c. LOC Commands: (0) performs tasks correctly 2. Best Gaze: (0) normal 3. Visual: (0) no visual loss 4. Facial Palsy: (2) partial paralysis 5a. Motor Arm Left: (0) no drift 5b. Motor Arm Right: (0) no drift 6a. Motor Leg Left: (0) no drift 6b. Motor Leg Right: (0) no drift 7. Limb Ataxia: (0) absent 8. Sensory: (0) normal 9. Best Language: (0) no aphasia 10. Dysarthria: (0) normal 11. Extinction/Inattention: (0) no abnormality NIH Score total: 2 - Medical Decision Making Patient is a 69-year-old male presenting with left-sided facial droop times one week. Also admits to some mild left-sided drooling, trouble with buttons with the left hand. Patient denies headache, fever, chills. Patient denies being on blood thinners or trauma. Exam reveals some left-sided facial droop not involving the forehead. Negative pronator drift. Strength upper and lower extremities is 5 out of 5. CBC CMP are within normal limits. BUN is 29, creatinine is 1.39 consistent with past findings. CT the brain is suggestive of right basilar ganglia hemorrhagic infarct. No mass effect or midline shift. Findings were discussed with patient. Patient will be transferred [facility] for further treatment. Past Medical History Past Medical History: Hypertension, Osteoarthritis (OA), Sleep Apnea/CPAP/BIPAP Additional Past Medical History / Comment(s): CHRONIC BACK PAIN, C-PAP MACHINE., CYST ON KIDNEY., VARICOSE VEINS., STATES REPEAT RUPTURE OF QUADRICEPS TENDON DURING BACK SURGERY., USING CANE. History of Any Multi-Drug Resistant Organisms: None Reported Past Surgical History: Back Surgery, Joint Replacement Additional Past Surgical History / Comment(s): RIGHT KNEE REPLACEMENT., BILATERAL FOOT SURGERIES., VEIN STRIPPING., RIGHT SHOULDER, LEFT KNEE . Past Anesthesia/Blood Transfusion Reactions: No Reported Reaction Past Psychological History: Depression Smoking Status: Former smoker Past Alcohol Use History: None Reported Past Drug Use History: None Reported - Past Family History Father Family Medical History: Cancer Additional Family Medical History / Comment(s): PROSTATE CANCER Course Vital Signs 07/08/19 07/08/19 13:13 16:42 Temperature 98.1 F Pulse Rate 53 L 51 L Respiratory 18 18 Rate Blood Pressure 165/82 175/94 O2 Sat by Pulse 98 99 Oximetry Disposition Clinical Impression: Acute hemorrhagic infarction of brain Disposition: OTHER INSTITUTION NOT DEFINED Condition: Good Is patient prescribed a controlled substance at d/c from ED?: No Referrals: Fernando Yuen MD [Primary Care Provider] - 1-2 days - Out of Hospital Transfer - Req. Specs Out of Hospital Transfer - Requested Specifics: Other Emergency Center ([facility])
[2019-07-08 16:18] LABS: Basophils % (A) 1 %; Eosinophils # (A) 0.1 k/uL (0-0.7); Eosinophils % (A) 1 %; HCT 45.6 % (39.0-53.0); HGB 15.6 gm/dL (13.0-17.5); Lymphocytes # (A) 1.1 k/uL (1.0-4.8); Lymphocytes % (A) 19 %; MCHC 34.1 g/dL (31.0-37.0); MCV 93.8 fL (80.0-100.0); Mean Platelet Volume 7.9; Monocytes # (A) 0.3 k/uL (0-1.0); Monocytes % (A) 5 %; Neutrophils # (A) 4.3 k/uL (1.3-7.7); Neutrophils % (A) 74 %; Platelet Count 145 k/uL (150-450); RBC 4.86 m/uL (4.30-5.90); RDW 15.5 % (11.5-15.5); WBC 5.8 k/uL (3.8-10.6)
--- NOTE | 2019-07-08 16:28 | CT ---
EXAMINATION TYPE: CT brain wo con DATE OF EXAM: 07/08/2019 COMPARISON: MRI of the brain dated 04/27/2011 HISTORY: Left sided facial droop and weakness CT DLP: 1158.4 mGycm Automated exposure control for dose reduction was used. FINDINGS: Heterogeneous area of low attenuation in the right basal ganglia with ill-defined areas of hyperatten uation in the right basal ganglia, sánchez radiata and centrum semiovale. There is also areas of low a ttenuation superiorly in the right frontal lobe. No evidence of mass effect or midline shift. No hydr ocephalus. Extra-axial spaces are clear. Skull base is intact. Visualized paranasal sinuses and masto id air cells are clear. IMPRESSION: FINDINGS SUGGESTIVE OF RIGHT BASAL GANGLIA HEMORRHAGIC INFARCT. NO MASS EFFECT OR MIDLINE SHIFT. CONNIE ELATION WITH PATIENT HISTORY AND NEED FOR MRI OF THE BRAIN WITH AND WITHOUT CONTRAST. THESE FINDINGS WERE DISCUSSED WITH DR. PUCKETT BY DR. MEDINA AT 4:26 PM ON 07/08/2019.
[2019-07-08] MEDS ORDERED: DEXAMETHASONE SOD PHOSPHATE 10 MG/ML 1 ML VIAL IV STA (16:37)
[2019-07-08 17:17] VITALS: BP 156/92; PULSE 99; RESP 17; TEMP 98.3
== END 2019-07-08 17:27 | disposition other institution (70) ==
LOC: EC 13:06
DX: I63.89 Other cerebral infarction (principal); R29.702 NIHSS score 2; I10 Essential (primary) hypertension; G47.30 Sleep apnea, unspecified; F32.9 Major depressive disorder, single episode, unspecified; Z79.899 Other long term (current) drug therapy; Z88.0 Allergy status to penicillin; Z88.1 Allergy status to other antibiotic agents; Z87.891 Personal history of nicotine dependence; Z96.651 Presence of right artificial knee joint
CPT/HCPCS: 36415; 80053; 85025; 85610; 85730; 70450; 99285; 96374; J1100

== ENCOUNTER → 2019-10-03 | Outpatient (CLI) | payer MEDICARE ==
--- NOTE | 2019-10-03 14:48 | US ---
EXAMINATION TYPE: US venous doppler duplex LE RT DATE OF EXAM: 10/03/2019 1:57 PM COMPARISON: NONE CLINICAL HISTORY: Rt lower, pain and swelling M79.661/R22.41. Right leg redness and swelling, pt curr ently on chemo SIDE PERFORMED: Right TECHNIQUE: The lower extremity deep venous system is examined utilizing real time linear array sonog gary with graded compression, doppler sonography and color-flow sonography. VESSELS IMAGED: External Iliac Vein (EIV) Common Femoral Vein Deep Femoral Vein Greater Saphenous Vein * Femoral Vein Popliteal Vein Small Saphenous Vein * Proximal Calf Veins (* superficial vessels) Right Leg: Positive for DVT, within popliteal veins/ difficult to obtain color flow within distal fe moral vein Results called to Ban at Dr Quiros's office at time of exam Complete occlusion at level of popliteal vein with hyperechoic material expanding the lumen and absen t color flow is makes approximately into the distal right superficial femoral vein. IMPRESSION: Acute occluding DVT right lower extremity is confirmed.
== END | disposition home or self-care (01) ==
LOC: RADUSWWP 13:36
PROVIDERS: ATTEND Registered Nurse Oncology
DX: I82.431 Acute embolism and thrombosis of right popliteal vein (principal)

== ENCOUNTER → 2019-10-25 | Outpatient (CLI) | payer MEDICARE ==
--- NOTE | 2019-10-25 15:58 | XR ---
EXAMINATION TYPE: XR hand limited LT DATE OF EXAM: 10/25/2019 CLINICAL HISTORY: pain TECHNIQUE: Frontal, lateral and oblique images of the left hand are obtained. COMPARISON: None. FINDINGS: There is no acute fracture/dislocation evident. Severe degenerative change with bony fragm entation and sclerosis involving the first carpal metacarpal joint space. The overlying soft tissue a ppears unremarkable. IMPRESSION: There is no acute fracture or dislocation. ICD 10 NO FRACTURE, INITIAL EVALUATION
== END ==
LOC: RADXRMAIN 14:49
PROVIDERS: ATTEND Family Medicine
DX: R60.0 Localized edema (principal)

== ENCOUNTER → 2019-10-25 | Outpatient (CLI) | payer MEDICARE ==
--- NOTE | 2019-10-25 14:55 | US ---
EXAMINATION TYPE: US venous doppler duplex UE BI DATE OF EXAM: 10/25/2019 COMPARISON: NONE CLINICAL HISTORY: Edema R60.0 BUE. Patient on Eloquist. History of brain CA. SIDE PERFORMED: Bilateral Right Arm: Negative for DVT Left Arm: Negative for DVT IMPRESSION: No evidence for DVT at this time.
== END | disposition home or self-care (01) ==
LOC: RADUSWWP 13:43
PROVIDERS: ATTEND Family Medicine
DX: R60.0 Localized edema (principal)
CPT/HCPCS: 93970

== ENCOUNTER 2019-12-10 16:35 | Emergency (ER) | payer MEDICARE ==
[2019-12-10 16:43] VITALS: RESP 16
--- NOTE | 2019-12-10 17:08 | ED ---
Fall HPI - General Chief Complaint: Fall Stated Complaint: Fall Time Seen by Provider: 12/10/19 16:38 Source: patient, EMS, RN notes reviewed, old records reviewed Mode of arrival: EMS Limitations: no limitations - History of Present Illness Initial Comments: This is a 69-year-old male to the ER for evaluation patient has a for evaluation regards to fall off of standings patient is at significant history of weakness and dizziness had has not of brazen right upper arm but no pain there no bleeding, no other injuries noted. Follows mechanical in nature trip and fall. Patient is on Coumadin no loss of consciousness no other injury MD Complaint: fall -: minutes(s) Fall From: standing When Fall Occurred: 1 hour LEASE EXAMINER Fall Witnessed: yes, by family Place Fall Occurred: home Loss of Consciousness: none Prolonged Down Time?: no Symptoms Prior to Fall: none Location: head, face Severity: mild Severity scale (1-10): 2 Context: tripped/slipped Associated Symptoms: denies - Related Data Home Medications Medication Instructions Recorded Confirmed Atenolol 100 mg PO DAILY 10/02/15 07/08/19 Escitalopram [Lexapro] 20 mg PO DAILY 10/02/15 07/08/19 Allopurinol [Zyloprim] 200 mg PO DAILY 03/17/17 07/08/19 ALPRAZolam [Xanax] 0.5 mg PO HS 05/16/19 07/08/19 HYDROcodone/APAP 10-325MG [[place] 1 tab PO Q4H PRN 05/16/19 07/08/19 10-325] Pregabalin [Lyrica] 75 mg PO BID 05/16/19 07/08/19 Pantoprazole [Protonix] 40 mg PO DAILY 07/08/19 07/08/19 Allergies Allergy/AdvReac Type Severity Reaction Status Date / Time cephalexin monohydrate AdvReac GI BLEEDING Verified 12/10/19 18:45 [From Keflex] Penicillins AdvReac Dyspnea Verified 12/10/19 18:45 Review of Systems ROS Statement: Those systems with pertinent positive or pertinent negative responses have been documented in the HPI. ROS Other: All systems not noted in ROS Statement are negative. Past Medical History Past Medical History: Hypertension, Osteoarthritis (OA), Sleep Apnea/CPAP/BIPAP Additional Past Medical History / Comment(s): CHRONIC BACK PAIN, C-PAP MACHINE., CYST ON KIDNEY., VARICOSE VEINS., STATES REPEAT RUPTURE OF QUADRICEPS TENDON DURING BACK SURGERY., USING CANE. History of Any Multi-Drug Resistant Organisms: None Reported Past Surgical History: Back Surgery, Joint Replacement Additional Past Surgical History / Comment(s): RIGHT KNEE REPLACEMENT., BILATERAL FOOT SURGERIES., VEIN STRIPPING., RIGHT SHOULDER, LEFT KNEE . Past Anesthesia/Blood Transfusion Reactions: No Reported Reaction Past Psychological History: Depression Smoking Status: Former smoker Past Alcohol Use History: None Reported Past Drug Use History: None Reported - Past Family History Father Family Medical History: Cancer Additional Family Medical History / Comment(s): PROSTATE CANCER General Exam General appearance: alert, in no apparent distress Head exam: Present: atraumatic, normocephalic, normal inspection Eye exam: Present: normal appearance, PERRL, EOMI. Absent: scleral icterus, conjunctival injection, periorbital swelling ENT exam: Present: normal exam, mucous membranes moist Neck exam: Present: normal inspection. Absent: tenderness, meningismus, lymphadenopathy Respiratory exam: Present: normal lung sounds bilaterally. Absent: respiratory distress, wheezes, rales, rhonchi, stridor Cardiovascular Exam: Present: regular rate, normal rhythm, normal heart sounds. Absent: systolic murmur, diastolic murmur, rubs, gallop, clicks GI/Abdominal exam: Present: soft, normal bowel sounds. Absent: distended, tenderness, guarding, rebound, rigid Extremities exam: Present: normal inspection, full ROM, normal capillary refill. Absent: tenderness, pedal edema, joint swelling, calf tenderness Back exam: Present: normal inspection Neurological exam: Present: alert, oriented X3, CN II-XII intact Psychiatric exam: Present: normal affect, normal mood Skin exam: Present: warm, dry, intact, normal color. Absent: rash Course Vital Signs 12/10/19 16:36 Temperature 98.1 F Pulse Rate 61 Respiratory 16 Rate Blood Pressure 138/74 O2 Sat by Pulse 97 Oximetry - Reevaluation(s) Reevaluation #1: 12/10/19 18:54 Medical record is reviewed Reevaluation #2: 12/10/19 18:54 we did find old computed tomography scan which which shows a new computed tomography scan today's no change from prior Medical Decision Making - Medical Decision Making 69 male to the ER status post fall no head injury, from fall noted CT brain C- spine negative for acute disease left heel is without significant injury as well, rebanding patient can be discharged Disposition Clinical Impression: Fall, Head injury Disposition: HOME SELF-CARE Condition: Good Instructions (If sedation given, give patient instructions): Fall Prevention for Older Adults (ED), Head Injury (ED) Is patient prescribed a controlled substance at d/c from ED?: No Referrals: Fernando Yuen MD [Primary Care Provider] - 1-2 days
--- NOTE | 2019-12-10 17:55 | CT ---
EXAMINATION TYPE: CT brain magdi wo con DATE OF EXAM: 12/10/2019 COMPARISON: CT brain 07/08/2019 HISTORY: Fall with posterior head injury. CT DLP: 1926.1 mGycm Automated exposure control for dose reduction was used. Multiple axial sections were obtained from the skull base to T1 vertebra without contrast. Multiple axial sections were obtained of the brain without contrast. FINDINGS: There is cerebral cortical atrophy. There is no mass effect nor midline shift. There is no sign of in tracranial hemorrhage. There is patchy hypodensity in the right parietal lobe white matter and right posterior frontal lobe white matter. There is right posterior frontal craniotomy defect. Cervical vertebra have normal alignment. There is a large hypertrophic posterior osteophyte at C3-4 w ith impingement on the spinal canal. There is no compression fracture. Facet joints are intact. The s kull base is intact. There is no evidence of cervical spine fracture. IMPRESSION: Large calcified posterior disc herniation at C3-4 with spinal stenosis. No cervical spine fracture. Cerebral atrophy. Chronic small vessel ischemia with old right posterior frontal lobe and parietal lo be white matter infarct and encephalomalacia. No acute intracranial abnormality.
[2019-12-10 21:29] VITALS: BP 132/68; PULSE 52; TEMP 98.3
== END 2019-12-10 21:20 | disposition home or self-care (01) ==
LOC: EC 16:35
DX: S09.90XA Unspecified injury of head, initial encounter (principal); I10 Essential (primary) hypertension; M19.90 Unspecified osteoarthritis, unspecified site; G47.30 Sleep apnea, unspecified; F32.9 Major depressive disorder, single episode, unspecified; Z87.891 Personal history of nicotine dependence; Z88.0 Allergy status to penicillin; Z88.1 Allergy status to other antibiotic agents; Z79.01 Long term (current) use of anticoagulants; Z79.899 Other long term (current) drug therapy; Z96.651 Presence of right artificial knee joint; Z99.89 Dependence on other enabling machines and devices; W01.0XXA Fall on same level from slipping, tripping and stumbling without subsequent striking against object, initial encounter; Y92.009 Unspecified place in unspecified non-institutional (private) residence as the place of occurrence of the external cause
CPT/HCPCS: 70450; 72125; 99284